=== PATIENT | female | born 1950 | race Caucasian/White ===

== ENCOUNTER 2016-09-18 15:21 | Inpatient (IN) | payer OTHER ==
[~2016-09-18] VITALS: Ht 157.5 cm; Wt 58.5 kg
[2016-09-18 17:08] VITALS: BP 174/81
[2016-09-18] MEDS ORDERED: ESTR0.5T PO (18:03)
[2016-09-18] MEDS ORDERED: VITA400C36 PO (18:03)
[2016-09-18] MEDS ORDERED: HYDR-2867 IV (18:03)
[2016-09-18] MEDS ORDERED: MORP10SO PO (18:03)
[2016-09-18] MEDS ORDERED: MORP15TA34 PO (18:03)
[2016-09-18] MEDS ORDERED: CALC500T PO (18:03)
[2016-09-18] MEDS ORDERED: MORP10DI10 PO (18:03)
[2016-09-18] MEDS ORDERED: POTA10CA PO (18:03)
[2016-09-18] MEDS ORDERED: MAGN400T3 PO (18:03)
[2016-09-18] MEDS ORDERED: ACET325T9 PO (18:03)
[2016-09-18] MEDS ORDERED: CEFT1FRO2 IV (18:03)
[2016-09-18] MEDS ORDERED: DONE10TA7 PO (18:03)
[2016-09-18] MEDS ORDERED: AMLO2.5T PO (18:03)
[2016-09-18] MEDS ORDERED: ONDA-35 PO (18:03)
[2016-09-18] MEDS ORDERED: PROC10VI IV (18:03)
[2016-09-18] MEDS ORDERED: FISH1CAP PO (18:03)
[2016-09-18] MEDS ORDERED: LEVO50TA PO (18:03)
[2016-09-18] MEDS ORDERED: ONDA4DIS4 IV (18:03)
[2016-09-18] MEDS ORDERED: LISI-334 PO (18:03)
[2016-09-18] MEDS ORDERED: MORP15TA PO (18:07)
[2016-09-18] MEDS ORDERED: CALCIUM CARBONATE 500 MG TABLET PO PRN (18:15)
[2016-09-18] MEDS ORDERED: MORPHINE IR 15 MG TABLET PO PRN (18:15)
[2016-09-18] MEDS ORDERED: PROCHLORPERAZINE 10 MG/2 ML VIAL. IV PRN ×2 (18:15→18:30)
[2016-09-18] MEDS ORDERED: CEFTRIAXONE SODIUM 1 GM in IV NORMAL SALINE 50ML 50 ML IV SCH (18:30)
[2016-09-18] MEDS ORDERED: ONDANSETRON PF 4 MG/2 ML VIAL. IV PRN (18:30)
[2016-09-18] MEDS ORDERED: ONDANSETRON ODT 4 MG TAB.RAPDIS PO PRN (18:30)
[2016-09-18 18:50] LABS: BASO % 0 % (0-3); EOS % 1 % (0-3); HEMATOCRIT 44.6 % (36.0-47.0); HEMOGLOBIN 15.2 g/dL (12.0-15.5); LYMPH # 1.8 x10^3/uL (1.0-4.8); LYMPH % 25 % (24-48); MEAN CORPUSCULAR HEMOGLOBIN 28 pg (25-35); MEAN CORPUSCULAR HGB CONC 34 g/dL (31-37); MEAN CORPUSCULAR VOLUME 83 fL (79-100); MONO % 8 % (0-9); NEUT % 66 % (31-73); PLATELET COUNT 202 x10^3/uL (140-400); RED BLOOD COUNT 5.35 x10^6/uL (3.50-5.40); RED CELL DISTRIBUTION WIDTH 14.9 % (11.5-14.5)
[2016-09-18] MEDS: IV NORMAL SALINE 1000ML BAG 1,000 ML IV SCH ×2 (19:00→22:52)
[2016-09-18 19:06] LABS: ALBUMIN 3.3 g/dL (3.4-5.0); ALBUMIN/GLOBULIN RATIO 0.8 (1.0-1.7); C-REACTIVE PROTEIN 12.3 mg/L (0-3.3); CALCIUM 9.2 mg/dL (8.5-10.1); CREATININE 0.8 mg/dL (0.6-1.0); GFR 71.3; POTASSIUM 3.6 mmol/L (3.5-5.1); TOTAL BILIRUBIN 0.6 mg/dL (0.2-1.0); TOTAL PROTEIN 7.4 g/dL (6.4-8.2)
[2016-09-18 19:39] VITALS: BP 165/75
[2016-09-18] MEDS ORDERED: DONEPEZIL HCL 10 MG TABLET. PO SCH ×2 (21:00→22:00)
[2016-09-18] MEDS: DONEPEZIL HCL 10 MG TABLET. PO SCH (22:15)
[2016-09-18] MEDS: DIPHENHYDRAMINE 50 MG/ML VIAL IVP PRN (23:21)
[2016-09-18] MEDS: ACETAMINOPHEN 325 MG TABLET. PO SCH (23:24)
[2016-09-18 23:30] VITALS: BP 158/72
[2016-09-19 03:00] VITALS: BP 160/81
[2016-09-19] MEDS: IV NORMAL SALINE 1000ML BAG 1,000 ML IV SCH ×2 (06:11→23:23)
[2016-09-19] MEDS: LEVOTHYROXINE 50 MCG TABLET PO SCH (06:11)
[2016-09-19] MEDS: ACETAMINOPHEN 325 MG TABLET. PO SCH ×4 (06:11→23:22)
[2016-09-19 07:15] VITALS: BP 158/65
[2016-09-19] MEDS: VITAMIN E 200 UNIT CAPSULE. PO SCH (07:36)
[2016-09-19] MEDS: MAGNESIUM OXIDE 400 MG TABLET PO SCH (07:37)
[2016-09-19] MEDS: AMLODIPINE BESYLATE 2.5 MG TABLET PO SCH (07:37)
[2016-09-19] MEDS: LISINOPRIL 20 MG TABLET PO SCH (07:37)
[2016-09-19] MEDS: POTASSIUM CHLORIDE 10 MEQ TABLET.ER. PO SCH (07:38)
[2016-09-19] MEDS: ESTRADIOL 1 MG TABLET. PO SCH (07:38)
--- NOTE | 2016-09-19 08:41 | PDOC2 ---
GI CONSULT Reason For Consult: N/v/d HPI: HPI: 66 y/o female w/ dementia and debility transferred from [facility] for n/v/d where she had been admitted twice recently for same/dehydration. She apparently did not do well at home where she lives with her . History from printed records and staff as pt is alone in room this morning and a poor historian. She is trying to make a phone call with the tv remote. To me, she denies GI symptoms including n/v, diarrhea, abd pain, reflux, hematochezia, and melena. Her appetite is "so-so," but says she's going to try to eat breakfast. Doesn't believes she's ever had an EGD or colonoscopy. Per RN, no n/v or diarrhea since admitted here. Records indicate dark brown thick emesis w/ some tachycardia on 09/17 (at [facility]). Labs unrevealing here except for elevated CRP 12.3. CT A/P w/ IV contrast on 09/17 showed no acute findings and occasional tiny 1-2mm pulmonary nodules at right lung base. CT head w/o contrast on 09/16 was unrevealing. PMH: PMH: dementia, sinusitis, hypothyroidism, HTN, DDD, hyperglycemia, OA, HLD, cholecystectomy, hysterectomy, back surgery, knee surgery, , urinary incontinence FH: Family History: No pertinent hx Social History: Smoke: No ALCOHOL: none Drugs: None ROS: Difficult to obtain. Denies pain. VItals: Vitals: Vital Signs Date Time Temp Pulse Resp B/P Pulse Ox O2 Delivery O2 Flow Rate FiO2 09/19/16 07:37 54 158/65 09/19/16 07:15 98.1 18 95 Room Air 98.1 Labs: Labs: Laboratory Tests Test 09/18/16 18:30 White Blood Count 7.0x10^3/uL (4.0-11.0) Red Blood Count 5.35x10^6/uL (3.50-5.40) Hemoglobin 15.2g/dL (12.0-15.5) Hematocrit 44.6% (36.0-47.0) Mean Corpuscular Volume 83fL (79-100) Mean Corpuscular Hemoglobin 28pg (25-35) Mean Corpuscular Hemoglobin Concent 34g/dL (31-37) Red Cell Distribution Width 14.9% (11.5-14.5) Platelet Count 202x10^3/uL (140-400) Neutrophils (%) (Auto) 66% (31-73) Lymphocytes (%) (Auto) 25% (24-48) Monocytes (%) (Auto) 8% (0-9) Eosinophils (%) (Auto) 1% (0-3) Basophils (%) (Auto) 0% (0-3) Neutrophils # (Auto) 4.7x10^3uL (1.8-7.7) Lymphocytes # (Auto) 1.8x10^3/uL (1.0-4.8) Monocytes # (Auto) 0.6x10^3/uL (0.0-1.1) Eosinophils # (Auto) 0.0x10^3/uL (0.0-0.7) Basophils # (Auto) 0.0x10^3/uL (0.0-0.2) Erythrocyte Sedimentation Rate 5 (0-25) Sodium Level 141mmol/L (136-145) Potassium Level 3.6mmol/L (3.5-5.1) Chloride Level 103mmol/L (98-107) Carbon Dioxide Level 24mmol/L (21-32) Anion Gap 14 (6-14) Blood Urea Nitrogen 14mg/dL (7-20) Creatinine 0.8mg/dL (0.6-1.0) Estimated GFR (Cockcroft-Gault) 71.3 BUN/Creatinine Ratio 18 (6-20) Glucose Level 82mg/dL (70-99) Calcium Level 9.2mg/dL (8.5-10.1) Total Bilirubin 0.6mg/dL (0.2-1.0) Aspartate Amino Transf (AST/SGOT) 22U/L (15-37) Alanine Aminotransferase (ALT/SGPT) 18U/L (14-59) Alkaline Phosphatase 85U/L (46-116) C-Reactive Protein, Quantitative 12.3mg/L (0-3.3) Total Protein 7.4g/dL (6.4-8.2) Albumin 3.3g/dL (3.4-5.0) Albumin/Globulin Ratio 0.8 (1.0-1.7) Thyroid Stimulating Hormone (TSH) 1.704uIU/mL (0.358-3.74) Allergies: Coded Allergies: codeine (Verified Allergy, Intermediate, 09/18/16) Medications: Current Medications Medications (Trade) Dose Ordered Sig/Dominick Route PRN Reason Start Time Stop Time Status Last Admin Dose Admin Sodium Chloride (Iv Sodium Chloride 0.9% 1000ml Bag) 1,000 ml @ 100 mls/hr Q10H IV 09/18/16 19:00 09/19/16 06:11 Acetaminophen (Tylenol) 650 mg Q6HRS PO 09/19/16 00:00 09/19/16 06:11 Amlodipine Besylate (Norvasc) 2.5 mg DAILY PO 09/19/16 09:00 09/19/16 07:37 Levothyroxine Sodium (Synthroid) 50 mcg DAILY07 PO 09/19/16 07:00 09/19/16 06:11 Lisinopril (Prinivil) 20 mg DAILY PO 09/19/16 09:00 09/19/16 07:37 Magnesium Oxide (Magnesium Oxide) 400 mg DAILY PO 09/19/16 09:00 09/19/16 07:37 Estradiol (Estrace) 0.5 mg DAILY PO 09/19/16 09:00 09/19/16 07:38 Potassium Chloride (Klor-Con) 10 meq DAILYWBKFT PO 09/19/16 08:00 09/19/16 07:38 Vitamin E 400 unit DAILY PO 09/19/16 09:00 09/19/16 07:36 Donepezil HCl (Aricept) 10 mg HS PO 09/18/16 22:15 09/18/16 22:15 Diphenhydramine HCl (Benadryl) 25 mg PRN Q4HRS PRN IVP ITCHING 09/18/16 23:15 09/18/16 23:21 Imaging: Imaging: Reviewed from [facility] as per HPI. PE: GEN: NAD HEENT: Atraumatic, PERRL LUNGS: CTAB HEART: RRR ABD: NABS, S/ND/NT EXTREMITY: No edema SKIN: No rashes, no jaundice NEURO/PSYCH: awake/alert, confused A/P: A/P: Vomiting, diarrhea -admitted twice recently at [facility] for same, transferred to [facility] yesterday ---> asymptomatic here -labs, imaging unrevealing except elevated CRP Dementia -- Difficult w/ dementia. Hopefully will be able to review w/ at some point. Empiric PPI. Can check C Diff if diarrhea recurs. Observe - consider EGD/colonoscopy later if symptoms recur. EUGENE UP Sep 19, 2016 08:41
[2016-09-19] MEDS ORDERED: CEFTRIAXONE NA IV SCH (09:00)
[2016-09-19] MEDS ORDERED: DEXTROSE ISO IV SCH (09:00)
[2016-09-19] MEDS: PANTOPRAZOLE 40 MG TABLET. PO SCH (09:44)
[2016-09-19 11:07] VITALS: BP 149/61
[2016-09-19 12:52] LABS: HEMOGLOBIN 14.1 g/dL (12.0-15.5); RED BLOOD COUNT 4.98 x10^6/uL (3.50-5.40); RED CELL DISTRIBUTION WIDTH 14.3 % (11.5-14.5); WHITE BLOOD COUNT 5.6 x10^3/uL (4.0-11.0)
--- NOTE | 2016-09-19 13:49 | HP ---
ADMIT DATE: 09/18/2016 HISTORY OF PRESENT ILLNESS: This is a 66-year-old female patient who was transferred to us from [facility]. She was admitted twice with recurrent bouts of nausea, vomiting, marked dehydration and severe hypokalemia. She was admitted on 09/10/2016 because of recurrent bouts of nausea, vomiting, diarrhea and altered mental status, sinusitis and aspiration pneumonitis as well as bradycardia. She has been on large amount of narcotics that were discontinued. She was discharged home to continue on the doxycycline for a sinus infection and pneumonia. Her MS Contin was stopped due to nausea and sedation; however, she came back again with the same complaint of nausea, vomiting and found to be dehydrated as well as have marked hypokalemia with potassium down to 0.9 and further she has had extensive investigation including abdomen and pelvis with IV contrast only and it showed that there is no abnormal finding on both lung bases. The liver and spleen appears unremarkable. Clips are seen in the area of the duodenal sweep and at the gastroesophageal junction. No pancreatic abnormality is seen. No significant adrenal anomalies are seen. Small adrenal cysts are noted in acute finding. The abdomen is not seen. No acute finding apparent in the pelvis. Postoperative changes are noted in the lumbar spine. Scoliosis and degenerative changes are additionally noted. The patient basically continued to be extremely anorexic, unable to eat and drink. Given the recurrent nature of her symptoms, a decision was made to transfer her to [facility] to consult the gastroenterology team. The patient herself is extremely demented and does not give any useful information. PAST MEDICAL HISTORY: Significant for hypertension, hyperlipidemia, hypothyroidism, osteoarthritis and degenerative disk disease. She has also severe dementia. PAST SURGICAL HISTORY: Significant for cholecystectomy, hysterectomy, back surgery, x 2, bilateral total knee replacement and incontinence treatment. FAMILY HISTORY: Significant for brain aneurysm and colon cancer in her brother and lung cancer in her sister. SOCIAL HISTORY: She lives with her . She does not smoke, drink alcohol or use recreational drugs. REVIEW OF SYSTEMS: Unobtainable as the patient is extremely demented. PHYSICAL EXAMINATION: GENERAL: On examining her, she looked well and was clearly in no apparent respiratory distress, pale, no jaundice, cyanosis or thyromegaly. No jugular venous distention. No limb edema. VITAL SIGNS: Her heart rate was 59, blood pressure was 166/75, temperature was 99, respiratory rate was 18 and oxygen saturation was 98%. HEAD, EYES, EARS NOSE AND THROAT: Normocephalic, atraumatic. NECK: Supple. HEART: Showed normal first and second heart sounds with no gallop, rub or murmur. CHEST: Clear to auscultation. No crepitation or rhonchi. ABDOMEN: Distended, soft, nontender. No guarding or rigidity. No organomegaly. All hernial orifices intact. Bowel sounds normal. NEUROLOGIC: She is demented without any obvious lateralizing sign. All her cranial nerves are intact. EXTREMITIES: She moves extremities without difficulty. She manages to ambulate with assistance. LABORATORY DATA: Her lab work this morning showed a white cell count of 7000, hemoglobin 15, hematocrit 44, MCV 83, and platelet count of 202,000 with normal manual differential. Her chemistry showed a serum sodium of 141, potassium 3.6, chloride 103, bicarbonate 24, anion gap of 14, BUN 14, creatinine 0.8, estimated GFR was 71 mL per minute. Her glucose was 82. Calcium was 9.2. Total bilirubin, AST, ALT, alkaline phosphatase were normal. Her total protein was 7.4, albumin 3.3. TSH was 1.704 and C-reactive protein was 12.3 mg/dL. PLAN: My plan is to continue with her current medication. Continue with IV fluid. We will consult the gastroenterology team and decide on further management accordingly. ROSA SCHULTZ MD DR: GRECIA/hay JOB#: [id number] / [id number]
[2016-09-19] MEDS: CEFTRIAXONE SODIUM 1 GM in IV NORMAL SALINE 50ML 50 ML IV SCH (14:00)
[2016-09-19 15:15] VITALS: BP 156/69
[2016-09-19 19:00] VITALS: BP 174/79
[2016-09-19] MEDS: DONEPEZIL HCL 10 MG TABLET. PO SCH (21:00)
[2016-09-19 23:00] VITALS: BP 163/128
[2016-09-19] MEDS: hydrALAZINE 20 MG/ML VIAL. IVP PRN (23:23)
[2016-09-20 03:00] VITALS: BP 173/95
[2016-09-20] MEDS: hydrALAZINE 20 MG/ML VIAL. IVP PRN ×4 (03:55→22:35)
[2016-09-20] MEDS: LEVOTHYROXINE 50 MCG TABLET PO SCH (05:52)
[2016-09-20] MEDS: ACETAMINOPHEN 325 MG TABLET. PO SCH ×4 (05:52→20:35)
[2016-09-20 07:25] LABS: ALBUMIN 3.1 g/dL (3.4-5.0); ALBUMIN/GLOBULIN RATIO 0.9 (1.0-1.7); POTASSIUM 3.1 mmol/L (3.5-5.1); TOTAL BILIRUBIN 0.5 mg/dL (0.2-1.0); TOTAL PROTEIN 6.6 g/dL (6.4-8.2)
[2016-09-20 07:37] VITALS: BP 176/89
[2016-09-20 07:38] LABS: CALCIUM 8.6 mg/dL (8.5-10.1); CREATININE 0.6 mg/dL (0.6-1.0); GFR 99.4
[2016-09-20] MEDS ORDERED: BARIUM SULFATE 340 GM SUSPENSION. PO ONE (07:45)
[2016-09-20] MEDS ORDERED: BARIUM SULFATE 60% 355 ML SUSP PO ONE (07:45)
[2016-09-20] MEDS ORDERED: SIMETHICONE/SOD BICARB/CITRIC ACID PACKET. PO ONE (07:45)
[2016-09-20] MEDS ORDERED: IV DEXTROSE 5 %-0.45 % NACL 1,000 ML IV SCH (10:00)
[2016-09-20 10:17] VITALS: BP 152/78
[2016-09-20] MEDS: IV NORMAL SALINE 1000ML BAG 1,000 ML IV SCH (11:00)
[2016-09-20] MEDS: PANTOPRAZOLE 40 MG TABLET. PO SCH (13:36)
[2016-09-20] MEDS: VITAMIN E 200 UNIT CAPSULE. PO SCH (13:36)
[2016-09-20] MEDS: POTASSIUM CHLORIDE 10 MEQ TABLET.ER. PO SCH (13:37)
[2016-09-20] MEDS: ESTRADIOL 1 MG TABLET. PO SCH (13:37)
[2016-09-20] MEDS: MAGNESIUM OXIDE 400 MG TABLET PO SCH (13:37)
[2016-09-20] MEDS: AMLODIPINE BESYLATE 2.5 MG TABLET PO SCH (13:45)
[2016-09-20] MEDS: LISINOPRIL 20 MG TABLET PO SCH (13:45)
--- NOTE | 2016-09-20 13:52 | PDOC ---
Objective: Objective: No family present. Vital Signs: Vital Signs Date Time Temp Pulse Resp B/P Pulse Ox O2 Delivery O2 Flow Rate FiO2 09/20/16 13:45 63 188/98 09/20/16 10:17 97.5 18 96 Room Air 97.5 Labs: Laboratory Tests Test 09/20/16 09:40 Glucose (Fingerstick) 69mg/dL (70-99) Imaging: UGI Series PENDING PE: GEN: NAD LUNGS: CTAB HEART: RRR ABD: epigastric tenderness NEURO/PSYCH: confused, drowsy A/P: Vomiting - no recurrence here Dementia -- Official UGI series report pending. Called radiology, spoke w/ tech - no filling into duodenum ?possible stricture Reviewed w/ Dr. Reed - no massage into stomach, ?esophageal narrowing w/ clips D/w RN - NG tube, EGD tomorrow if family consents. EUGENE UP Sep 20, 2016 13:52 TELMA REED MD Sep 20, 2016 14:33
[2016-09-20] MEDS: POTASSIUM CL 40MEQ D5-0.45NACL 1,000 ML IV SCH (13:54)
--- NOTE | 2016-09-20 14:01 | RAD ---
Indication recurrent vomiting. A preliminary film of the abdomen was obtained. The abdominal gas pattern appears normal. Postoperative changes are noted in the lower lumbar spine. There is scoliosis and substantial degenerative change involving the lumbar spine. The study is extremely limited. The patient was not a candidate for a double contrast exam and the patient did not cooperate for the exam. She drank only a very limited amount of the contrast material. Swallowing was normal. No definite esophageal pathology was seen. There was a small hiatus hernia. There is some suggested thickening of rugal folds in the stomach. The stomach was incompletely distended and poorly evaluated. Gastric pathology is not excluded. The study was carried out for approximately 2 hours and 20 minutes. Over this period of time there was no emptying from the stomach. IMPRESSION: Essentially nondiagnostic study. No significant esophageal pathology is seen. There is delayed emptying from the stomach. Gastric and/or duodenal pathology is not excluded on the basis of this study.
[2016-09-20] MEDS: CEFTRIAXONE SODIUM 1 GM in IV NORMAL SALINE 50ML 50 ML IV SCH (14:02)
[2016-09-20 14:05] VITALS: BP 188/98
[2016-09-20] MEDS: DIPHENHYDRAMINE 50 MG/ML VIAL IVP PRN (15:18)
[2016-09-20] MEDS ORDERED: LORAZEPAM 2 MG/ML VIAL IV ONE (17:00)
[2016-09-20] MEDS: CLONIDINE TTS-2 PATCH TD SCH (17:12)
--- NOTE | 2016-09-20 18:17 | RAD ---
PROCEDURE Abdomen, single view. HISTORY Nasogastric tube placement. FINDINGS Frontal views of the abdomen are obtained. There is a nasogastric tube within the gastric cardia with the side-port in the distal esophagus. There is contrast within the stomach. There is no effusion. The heart is normal in size. There is a left PICC with the tip overlying the left axilla. IMPRESSION 1. Nasogastric tube within the proximal stomach with the side port in the distal esophagus. There is contrast within the stomach. 2. Left PICC with the tip overlying the left axilla. Electronically signed by: Radha Shankar (Sep 20, 2016 18:15:54)
--- NOTE | 2016-09-20 19:25 | RAD ---
PROCEDURE Abdomen radiograph. HISTORY NG tube placement. COMPARISON Earlier same day. FINDINGS AP portable upright abdomen radiograph, 2 images. Abdomen is underexposed. Consequently, cannot delineate location of tip of esophagogastric tube. Esophagogastric tube is at least to the distal esophagus. IMPRESSION Limited examination. Recommend repeat examination with altered technique. Electronically signed by: Alen Aguilera MD (Sep 20, 2016 19:23:30)
[2016-09-20] MEDS: DONEPEZIL HCL 10 MG TABLET. PO SCH (20:35)
--- NOTE | 2016-09-20 20:42 | RAD ---
PROCEDURE Abdomen radiograph. HISTORY Repositioning of NG tube. COMPARISON Earlier same day. FINDINGS Upright AP view of the abdomen. Contrast material is seen in the stomach as well as the bowel. L4-5 laminectomy and spinal fusion changes are seen. S-shaped scoliosis of the lower thoracic and lumbar spine is seen. Esophagogastric tube is present with tip projecting at the midbody of the stomach. IMPRESSION Esophagogastric tube tip projects at the midbody of the stomach. Electronically signed by: Alen Aguilera MD (Sep 20, 2016 20:41:29)
[2016-09-20 22:54] VITALS: BP 193/97
[2016-09-20] MEDS: LORAZEPAM 2 MG/ML VIAL IV PRN (23:09)
[2016-09-21 03:00] VITALS: BP 169/113
[2016-09-21] MEDS: POTASSIUM CL 40MEQ D5-0.45NACL 1,000 ML IV SCH ×2 (03:11→18:39)
[2016-09-21] MEDS: hydrALAZINE 20 MG/ML VIAL. IVP PRN ×2 (04:14→08:35)
[2016-09-21] MEDS: LEVOTHYROXINE 50 MCG TABLET PO SCH (05:22)
[2016-09-21] MEDS: ACETAMINOPHEN 325 MG TABLET. PO SCH ×4 (05:22→18:00)
[2016-09-21 05:39] LABS: BASO % 0 % (0-3); EOS % 1 % (0-3); HEMATOCRIT 46.1 % (36.0-47.0); LYMPH # 1.2 x10^3/uL (1.0-4.8); LYMPH % 14 % (24-48); MEAN CORPUSCULAR HEMOGLOBIN 28 pg (25-35); MEAN CORPUSCULAR HGB CONC 35 g/dL (31-37); MEAN CORPUSCULAR VOLUME 82 fL (79-100); MONO % 7 % (0-9); NEUT % 79 % (31-73); PLATELET COUNT 267 x10^3/uL (140-400); RED BLOOD COUNT 5.65 x10^6/uL (3.50-5.40); RED CELL DISTRIBUTION WIDTH 14.6 % (11.5-14.5)
[2016-09-21] MEDS ORDERED: ONDANSETRON PF 4 MG/2 ML VIAL. IV PRN ×2 (05:49→11:00)
[2016-09-21 06:06] LABS: ALBUMIN/GLOBULIN RATIO 0.8 (1.0-1.7); CREATININE 0.7 mg/dL (0.6-1.0); GFR 83.2; TOTAL BILIRUBIN 0.4 mg/dL (0.2-1.0); TOTAL PROTEIN 6.9 g/dL (6.4-8.2)
[2016-09-21 06:11] LABS: POTASSIUM 2.9 mmol/L (3.5-5.1)
[2016-09-21] MEDS: POTASSIUM CHLORIDE 10MEQ 100 ML IV SCH ×4 (06:36→10:44)
[2016-09-21] MEDS: PANTOPRAZOLE 40 MG TABLET. PO SCH (06:40)
--- NOTE | 2016-09-21 06:50 | PN ---
DATE: 09/20/2016 SUBJECTIVE: The patient is sitting in the edge of the bed comfortably, in no apparent distress. She apparently refused to have the endoscopy this morning. Apparently, she is scheduled for upper GI series. She did have diarrhea and her potassium is low this morning at 3.1. OBJECTIVE: GENERAL: When I examined her, she looked well and was clearly in no apparent respiratory distress, pale, but no jaundice, cyanosis, or thyromegaly. No jugular venous distention. No limb edema. VITAL SIGNS: Her heart rate was 69, blood pressure was 152/78, temperature was 97.5, respiratory rate was 18 and oxygen saturation was 96%. HEAD, EYES, EARS, NOSE AND THROAT: Showed normocephalic, atraumatic. NECK: Supple. HEART: Showed normal first and second heart sounds with no gallop, rub or murmur. CHEST: Clear to auscultation. No crepitation or rhonchi. ABDOMEN: Distended, soft, nontender. No guarding or rigidity. No organomegaly. All hernial orifices intact. Bowel sounds normal. NEUROLOGIC: She was demented, but without any obvious lateralizing sign. She is able to move her lower extremities without difficulty, able to ambulate. Her intake over the last 24 hours was 1120, no output was recorded. LABORATORY DATA: This morning showed a serum sodium 138, potassium 3.1, chloride 102, bicarbonate 19, anion gap of 17, BUN 10, creatinine 0.6. Estimated GFR was 99 mL per minute. Her glucose was 67. Calcium was 8.6. Total bilirubin, AST, ALT, alkaline phosphatase were normal. Total protein was 6.6, albumin 3.1. TSH was 1.704. Her white cell count was 5600, hemoglobin 14, hematocrit 42, MCV 84 and platelet count of 184,000. ASSESSMENT: Recurrent bouts of nausea, vomiting as well as diarrhea, and hypokalemia. PLAN: The plan is to change her IV fluid to D5 half normal with 40 mEq of potassium chloride. She is apparently scheduled for upper GI series. We will repeat all her lab works tomorrow. Await the results of the upper GI series as well as upper GI endoscopy. ROSA SCHULTZ MD DR: GRECIA/hay JOB#: [id number] / [id number]
[2016-09-21 07:54] VITALS: BP 177/117
[2016-09-21] MEDS: POTASSIUM CHLORIDE 10 MEQ TABLET.ER. PO SCH (08:00)
[2016-09-21] MEDS: VITAMIN E 200 UNIT CAPSULE. PO SCH (09:00)
[2016-09-21] MEDS: AMLODIPINE BESYLATE 2.5 MG TABLET PO SCH (09:00)
[2016-09-21] MEDS: MAGNESIUM OXIDE 400 MG TABLET PO SCH (09:00)
[2016-09-21] MEDS: LISINOPRIL 20 MG TABLET PO SCH (09:00)
[2016-09-21] MEDS: ESTRADIOL 1 MG TABLET. PO SCH (09:00)
[2016-09-21] MEDS ORDERED: IV RINGERS,LACTATED 1000ML 1,000 ML IV SCH (10:48)
[2016-09-21 11:00] VITALS: BP 175/104
[2016-09-21] MEDS ORDERED: LIDOCAINE 1% 1 ML SYRINGE. ID PRN (11:00)
[2016-09-21] MEDS ORDERED: PROCHLORPERAZINE 10 MG/2 ML VIAL. IV PRN ×2 (11:00→13:39)
[2016-09-21] MEDS ORDERED: FENTANYL PF 100 MCG/2 ML VIAL. IV PRN ×2 (11:00)
[2016-09-21] MEDS ORDERED: LABETALOL 20 MG/4 ML DISP.SYRIN. IVP PRN (11:45)
[2016-09-21] MEDS ORDERED: LIDOCAINE 2% PF Vial for OR 5 ML VIAL. ONE (12:03)
[2016-09-21] MEDS ORDERED: PROPOFOL 0 ML IV ONE (12:03)
--- NOTE | 2016-09-21 12:19 | PDOC4 ---
Operative Note Operative Note EGD Meds propofol 100 mg iv Pre-op dx n/v/abnl ugi series post-op retained barium non-erosive gastritis without obstruction Imp- n/v- without outlet obstruction, differential of extrinsic compression and/ or intrinsic motility dysfunction- gastroparesis Plan CT scan abd/pelvis if unhelpful, then GES to follow. TELMA RODRIGUEZ MD Sep 21, 2016 12:19
[2016-09-21 15:15] VITALS: BP 168/102
[2016-09-21] MEDS ORDERED: IOHEXOL 300 MG/ML 75 ML VIAL IV ONE (17:15)
[2016-09-21] MEDS ORDERED: CONTRAST GIVEN MC PRN (17:15)
[2016-09-21] MEDS: CEFTRIAXONE SODIUM 1 GM in IV NORMAL SALINE 50ML 50 ML IV SCH (17:32)
[2016-09-21 19:00] VITALS: BP 169/105
[2016-09-21] MEDS: DONEPEZIL HCL 10 MG TABLET. PO SCH (21:00)
[2016-09-21 23:00] VITALS: BP 165/101
--- NOTE | 2016-09-22 00:37 | PN ---
DATE: 09/21/2016 SUBJECTIVE: The patient is resting slightly propped up in bed, in no apparent distress. She is very lethargic. She received 2 doses of Ativan yesterday. She has an NG tube put in as her upper GI series showed that there is no significant pathology seen. There is delayed emptying from the stomach, gastric and/or duodenal pathology is not excluded on the basis of this study. She continued unfortunately to have diarrhea and stool was sent for C. diff toxins. Her potassium was low and unfortunately she is losing it through the NG tube and also from her through her diarrhea and we did start her on potassium replacement protocol. She is already on D5 half normal with 40 mEq of potassium chloride. PHYSICAL EXAMINATION: GENERAL: When I examined her this morning, she looked well and was clearly in no apparent respiratory distress, pale, but no jaundice, cyanosis or thyromegaly. No jugular venous distention. No limb edema. VITAL SIGNS: Her heart rate was 84, blood pressure was 177/117, temperature was 97.6, respiratory rate was 18 and oxygen saturation was 95% on room air. HEAD, EYES, EARS, NOSE AND THROAT: Showed she is normocephalic, atraumatic. EXTREMITIES: She has a nasogastric tube in the right nostril. NECK: Supple. HEART: Showed normal first and second heart sounds with no gallop, rub or murmur. CHEST: Clear to auscultation, no rales, wheezes or rhonchi. ABDOMEN: Distended, mostly in the suprapubic area. No guarding or rigidity. No organomegaly. Hernial orifices intact. Bowel sounds normal. NEUROLOGIC: She is demented without any obvious lateralizing sign. Her intake over the last 24 hours was 420, output was 600. LABORATORY DATA: Her lab work this morning showed that her serum sodium was 138, potassium 2.9, chloride 102, bicarbonate 24, anion gap of 12, BUN 7, creatinine 0.7, estimated GFR was 83 mL per minute. Her glucose was 122, calcium was 9. Total bilirubin, AST, ALT, alkaline phosphatase were normal. Total protein was 6.9, albumin 3. White cell count was 9000, hemoglobin 16, hematocrit 46, MCV was 82 and platelet count 267,000. ASSESSMENT AND PLAN: Recurrent bouts of nausea, vomiting as well as diarrhea. Upper GI series showed possible delayed gastric emptying, with possible gastric or duodenal pathology for which she is scheduled for upper GI endoscopy this morning. Hypokalemia for which she is on potassium supplement. Stool was sent for C. diff toxins. We will continue with IV fluid. She is already on proton pump inhibitor and she is on SCD for DVT prophylaxis. ROSA SCHULTZ MD DR: GRECIA/hay JOB#: [id number] / [id number]
[2016-09-22] MEDS: ACETAMINOPHEN 325 MG TABLET. PO SCH ×6 (03:05→22:55)
[2016-09-22 03:09] VITALS: BP 128/87
[2016-09-22] MEDS ORDERED: CONTRAST GIVEN MC PRN (06:45)
[2016-09-22] MEDS ORDERED: IOHEXOL 300 MG/ML 75 ML VIAL IV ONE (07:00)
[2016-09-22 07:57] LABS: ALBUMIN 2.8 g/dL (3.4-5.0); ALBUMIN/GLOBULIN RATIO 0.8 (1.0-1.7); CREATININE 0.7 mg/dL (0.6-1.0); GFR 83.2; POTASSIUM 3.5 mmol/L (3.5-5.1); TOTAL BILIRUBIN 0.4 mg/dL (0.2-1.0); TOTAL PROTEIN 6.5 g/dL (6.4-8.2)
[2016-09-22 07:59] VITALS: BP 150/96
[2016-09-22] MEDS: POTASSIUM CHLORIDE 10 MEQ TABLET.ER. PO SCH (08:00)
[2016-09-22 08:17] LABS: HEMOGLOBIN 14.1 g/dL (12.0-15.5); RED CELL DISTRIBUTION WIDTH 14.4 % (11.5-14.5); WHITE BLOOD COUNT 6.2 x10^3/uL (4.0-11.0)
[2016-09-22] MEDS: MAGNESIUM OXIDE 400 MG TABLET PO SCH (09:00)
[2016-09-22] MEDS: LISINOPRIL 20 MG TABLET PO SCH (09:35)
[2016-09-22] MEDS: AMLODIPINE BESYLATE 2.5 MG TABLET. PO SCH (09:36)
[2016-09-22] MEDS: VITAMIN E 200 UNIT CAPSULE. PO SCH (09:39)
[2016-09-22] MEDS: ESTRADIOL 1 MG TABLET. PO SCH (09:39)
[2016-09-22] MEDS: PANTOPRAZOLE 40 MG TABLET.DR. PO SCH (09:40)
[2016-09-22] MEDS: POTASSIUM CL 40MEQ D5-0.45NACL 1,000 ML IV SCH (09:45)
[2016-09-22] MEDS: LEVOTHYROXINE 50 MCG TABLET PO SCH (09:55)
--- NOTE | 2016-09-22 10:00 | RAD ---
Indication nausea and vomiting. Axial images through the abdomen and pelvis were obtained. The examination is severely limited, particularly in the abdomen, secondary to residual contrast in the stomach and small bowel loops associated with the upper GI examination 2 days previously. There is residual contrast which is very dense and causes substantial streak artifact and obscuration of the abdominal structures. The lung bases are clear. The liver is grossly normal as is the spleen. The pancreas is largely obscured. A definite acute finding or mass in the abdomen is not seen. The kidneys appear grossly normal. In the pelvis no definite abnormality is seen. Postoperative changes are noted in the lumbar spine. Fowler catheter is noted in the urinary bladder IMPRESSION: Severely limited study. No acute or definite abnormality seen.
[2016-09-22 10:35] VITALS: BP 146/87
--- NOTE | 2016-09-22 11:11 | PDOC ---
Subjective: Subjective: No history from pt. Objective: Objective: Per RN - not eating. Vital Signs: Vital Signs Date Time Temp Pulse Resp B/P Pulse Ox O2 Delivery O2 Flow Rate FiO2 09/22/16 10:35 98.4 62 18 146/87 97 Room Air 98.4 09/21/16 20:00 2.0 Labs: Laboratory Tests Test 09/21/16 17:25 09/22/16 07:00 Potassium Level 3.4mmol/L 3.5mmol/L White Blood Count 6.2x10^3/uL Red Blood Count 5.00x10^6/uL Hemoglobin 14.1g/dL Hematocrit 42.0% Mean Corpuscular Volume 84fL Mean Corpuscular Hemoglobin 28pg Mean Corpuscular Hemoglobin Concent 33g/dL Red Cell Distribution Width 14.4% Platelet Count 244x10^3/uL Sodium Level 140mmol/L Chloride Level 104mmol/L Carbon Dioxide Level 26mmol/L Anion Gap 10 Blood Urea Nitrogen 6mg/dL Creatinine 0.7mg/dL Estimated GFR (Cockcroft-Gault) 83.2 BUN/Creatinine Ratio 9 Glucose Level 115mg/dL Calcium Level 9.0mg/dL Total Bilirubin 0.4mg/dL Aspartate Amino Transf (AST/SGOT) 22U/L Alanine Aminotransferase (ALT/SGPT) 18U/L Alkaline Phosphatase 73U/L Total Protein 6.5g/dL Albumin 2.8g/dL Albumin/Globulin Ratio 0.8 Imaging: UGI IMPRESSION: Essentially nondiagnostic study. No significant esophageal pathology is seen. There is delayed emptying from the stomach. Gastric and/or duodenal pathology is not excluded on the basis of this study. EGD retained barium, non-erosive gastritis without obstruction Imp- n/v- without outlet obstruction, differential of extrinsic compression and/ or intrinsic motility dysfunction- gastroparesis CT A/P w/ IV contrast The examination is severely limited, particularly in the abdomen, secondary to residual contrast in the stomach and small bowel loops associated with the upper GI examination 2 days previously. There is residual contrast which is very dense and causes substantial streak artifact and obscuration of the abdominal structures. The lung bases are clear. The liver is grossly normal as is the spleen. The pancreas is largely obscured. A definite acute finding or mass in the abdomen is not seen. The kidneys appear grossly normal. In the pelvis no definite abnormality is seen. Postoperative changes are noted in the lumbar spine. Fowler catheter is noted in the urinary bladder IMPRESSION: Severely limited study. No acute or definite abnormality seen. PE: GEN: NAD LUNGS: clear anteriorly HEART: S1S2 ABD: soft, non-distended NEURO/PSYCH: confused A/P: N/v, diarrhea, anorexia, dementia -imaging as above, most recently CT w/ residual contrast -- Will order GET for Sunday considering retained contrast. EUGENE UP Sep 22, 2016 11:11
--- NOTE | 2016-09-22 12:02 | PN ---
DATE: 09/22/2016 SUBJECTIVE: The patient is sitting comfortably in a recliner in no apparent distress. She continued to have diarrhea, although stool for C. diff were negative. She has had upper GI endoscopy and apparently she has nonerosive gastritis without obstruction. She had a CT scan of the abdomen and pelvis with IV contrast, which showed that there is severely limited study, no acute or definite abnormality seen and obviously the plan is for her to have gastric emptying study as the only explanation for her intractable nausea and vomiting. Her potassium is well replenished today at 3.5. PHYSICAL EXAMINATION: GENERAL: When I examined her, she looked well and was clearly in no apparent respiratory distress, pale. No jaundice, cyanosis, no thyromegaly. No jugular venous distention. No limb edema. VITAL SIGNS: Her heart rate was 62, blood pressure was 146/82, temperature was 98.4, respiratory rate was 18 and oxygen saturation was 97%. HEENT: Shows normocephalic, atraumatic. NECK: Supple. HEART: Showed normal first and second heart sounds. No gallop, rub or murmur. CHEST: Clear to auscultation. No crepitation or rhonchi. ABDOMEN: Distended, soft, nontender. No guarding or rigidity. No organomegaly. Hernial orifices intact. Bowel sounds normal. NEUROLOGIC: She is demented without any obvious localizing sign. She actually managed to ambulate with a walker without any assistance. Her intake and output are incompletely recorded. LABORATORY DATA: Her lab work this morning showed a serum sodium 140, potassium 3.5, chloride 104, bicarbonate 26, anion gap of 10, BUN 6, creatinine 0.7, estimated GFR was 83 mL per minute, glucose 115, calcium was 9. Total bilirubin, AST, ALT, alkaline phosphatase were normal. Total protein was 6.5, albumin 2.8. Her white cell count was 6200, hemoglobin 14, hematocrit 42, MCV 84 and platelet count 244,000. IMPRESSION: Intractable nausea and vomiting as well as diarrhea and hypokalemia. Her upper GI endoscopy was unremarkable with no evidence of obstruction. Her stool for C. diff was negative. The plan is to continue with IV fluid. She probably needs a gastric emptying study. I would put the order and I do not know whether this can be done today or not. I will repeat her lab works tomorrow again. ROSA SCHULTZ MD DR: Sarabjit JOB#: [id number] / [id number]
--- NOTE | 2016-09-22 16:09 | RAD ---
Radionuclide gastric emptying study, 09/22/2016: History: Intractable nausea and vomiting The study was performed utilizing a solid test meal radiolabeled with 2 mCi of technetium 99m sulfur colloid. The patient reportedly ingested only a portion of the test meal. Imaging obtained out to one hour showed little if any gastric emptying. The time/activity curve is flat. An accurate T1/2 cannot be calculated in this setting. IMPRESSION: Markedly delayed gastric emptying.
[2016-09-22] MEDS: CEFTRIAXONE SODIUM 1 GM in IV NORMAL SALINE 50ML 50 ML IV SCH (18:07)
[2016-09-22] MEDS: LORAZEPAM 2 MG/ML VIAL IV PRN ×2 (19:09→23:31)
[2016-09-22 19:55] VITALS: BP 147/93
[2016-09-22] MEDS: METOCLOPRAMIDE HCL 10 MG/10 ML SOLUTION. PO SCH (22:55)
[2016-09-22] MEDS: DONEPEZIL HCL 10 MG TABLET. PO SCH (22:55)
[2016-09-23] VITALS (7 sets, daily range): BP systolic 123–144; BP diastolic 76–96
[2016-09-23] MEDS: POTASSIUM CL 40MEQ D5-0.45NACL 1,000 ML IV SCH ×4 (00:15→13:11)
[2016-09-23] MEDS: ACETAMINOPHEN 325 MG TABLET. PO SCH ×3 (06:08→17:28)
[2016-09-23 06:45] LABS: CALCIUM 8.9 mg/dL (8.5-10.1); CREATININE 0.7 mg/dL (0.6-1.0); GFR 83.2; POTASSIUM 3.9 mmol/L (3.5-5.1)
[2016-09-23] MEDS: LEVOTHYROXINE 50 MCG TABLET PO SCH (09:20)
[2016-09-23] MEDS: VITAMIN E 200 UNIT CAPSULE. PO SCH (09:21)
[2016-09-23] MEDS: PANTOPRAZOLE 40 MG TABLET.DR. PO SCH (09:21)
[2016-09-23] MEDS: METOCLOPRAMIDE HCL 10 MG/10 ML SOLUTION. PO SCH ×2 (09:21→11:43)
[2016-09-23] MEDS: ESTRADIOL 1 MG TABLET. PO SCH (09:21)
[2016-09-23] MEDS: MAGNESIUM OXIDE 400 MG TABLET PO SCH (09:21)
[2016-09-23] MEDS: AMLODIPINE BESYLATE 2.5 MG TABLET. PO SCH (09:34)
[2016-09-23] MEDS: POTASSIUM CHLORIDE 10 MEQ TABLET.ER. PO SCH (09:35)
[2016-09-23] MEDS: LISINOPRIL 20 MG TABLET PO SCH (09:35)
[2016-09-23] MEDS ORDERED: DIPHENHYDRAMINE 50 MG/ML VIAL. IVP PRN (13:30)
[2016-09-23] MEDS ORDERED: ONDANSETRON PF 4 MG/2 ML VIAL. IV PRN (13:30)
[2016-09-23] MEDS: CEFTRIAXONE SODIUM 1 GM in IV NORMAL SALINE 50ML 50 ML IV SCH (14:38)
[2016-09-23] MEDS: METOCLOPRAMIDE HCL 10 MG/2 ML VIAL. IV SCH (17:28)
[2016-09-23] MEDS: DONEPEZIL HCL 10 MG TABLET. PO SCH (21:00)
--- NOTE | 2016-09-23 22:48 | PN ---
DATE: SUBJECTIVE: The patient is sitting slightly propped up in her recliner in no apparent respiratory distress. She is awake, alert, very demented, and does not give any useful information. She apparently had had a gastric emptying study, which revealed marked delayed gastric emptying and apparently, she was started on Reglan 5 mg before meals. She continued to be on a clear liquid diet. PHYSICAL EXAMINATION: GENERAL: When I examined her, she looked well and was clearly in no apparent respiratory distress, pale, but no jaundice, cyanosis, or thyromegaly. No jugular venous distention. No limb edema. VITAL SIGNS: Her heart rate was 65, blood pressure was 130/82, temperature was 98.2, respiratory rate was 18, and oxygen saturation was 97%. HEAD, EYES, EARS, NOSE AND THROAT: Showed normocephalic, atraumatic. NECK: Supple. HEART: Showed normal first and second heart sounds with no gallop, rub, or murmur. CHEST: Clear to auscultation. No crepitation or rhonchi. ABDOMEN: Distended, soft, and nontender. NEUROLOGIC: She is demented, but without any obvious lateralizing sign. Her intake is 900, output 1450. LABORATORY DATA: Her lab work this morning showed a white cell count of 6,200, hemoglobin 14, hematocrit 42, MCV 84, and platelet count of 244,000. Her chemistry showed a serum sodium 140, potassium 3.9, chloride 107, bicarbonate 23, anion gap of 10, BUN 5, creatinine 0.7, estimated GFR was 83 mL per minute, her glucose was 104, and calcium was 8.9. ASSESSMENT: The recurrent bouts of nausea and vomiting, as well as diarrhea has resolved. Her stool for Clostridium difficile toxin is negative. The patient has severe markedly delayed gastric emptying, for which she was started on Reglan 5 mg before meals. She continued to be on a clear liquid diet. We will obviously advance as tolerated. PLAN: Continue with IV fluid. Continue to monitor her electrolytes as her potassium is much improved now from 2.9 to 3.9. ROSA SCHULTZ MD DR: GRECIA/hay JOB#: [id number] / [id number]
[2016-09-24] MEDS: ACETAMINOPHEN 325 MG TABLET. PO SCH ×4 (00:09→17:03)
[2016-09-24] MEDS: METOCLOPRAMIDE HCL 10 MG/2 ML VIAL. IV SCH ×4 (00:13→17:03)
[2016-09-24 03:04] VITALS: BP 124/69
[2016-09-24] MEDS: POTASSIUM CL 40MEQ D5-0.45NACL 1,000 ML IV SCH ×2 (03:35→17:29)
[2016-09-24] MEDS: PANTOPRAZOLE 40 MG TABLET.DR. PO SCH (06:22)
[2016-09-24] MEDS: LEVOTHYROXINE 50 MCG TABLET PO SCH (06:22)
[2016-09-24 07:00] VITALS: BP 132/82
[2016-09-24] MEDS: POTASSIUM CHLORIDE 10 MEQ TABLET.ER. PO SCH (08:36)
[2016-09-24] MEDS: MAGNESIUM OXIDE 400 MG TABLET PO SCH (08:36)
[2016-09-24] MEDS: ESTRADIOL 1 MG TABLET. PO SCH (08:36)
[2016-09-24] MEDS: AMLODIPINE BESYLATE 2.5 MG TABLET. PO SCH (08:37)
[2016-09-24] MEDS: LISINOPRIL 20 MG TABLET PO SCH (08:38)
[2016-09-24] MEDS: VITAMIN E 200 UNIT CAPSULE. PO SCH (08:57)
[2016-09-24 11:00] VITALS: BP 131/68
[2016-09-24] MEDS ORDERED: MAALOX:LIDO:APAP 6:2:1 ORAL SUSPENSION 180 ML BOTTLE. PO PRN (12:30)
[2016-09-24 13:10] LABS: CALCIUM 9.3 mg/dL (8.5-10.1); CREATININE 0.9 mg/dL (0.6-1.0); GFR 62.3; POTASSIUM 4.2 mmol/L (3.5-5.1)
[2016-09-24] MEDS: CEFTRIAXONE SODIUM 1 GM in IV NORMAL SALINE 50ML 50 ML IV SCH (14:31)
[2016-09-24 14:40] VITALS: BP 128/73
[2016-09-24 19:35] VITALS: BP 119/76
[2016-09-24] MEDS: DONEPEZIL HCL 10 MG TABLET. PO SCH (20:41)
[2016-09-24] MEDS ORDERED: LORAZEPAM 2 MG/ML VIAL. IV PRN (22:29)
[2016-09-24] MEDS ORDERED: ONDANSETRON ODT 4 MG TAB.RAPDIS. PO PRN (22:29)
[2016-09-24 23:30] VITALS: BP 115/77
[2016-09-25] MEDS: ACETAMINOPHEN 325 MG TABLET. PO SCH ×5 (00:04→23:52)
[2016-09-25] MEDS: METOCLOPRAMIDE HCL 10 MG/2 ML VIAL. IV SCH ×5 (00:07→23:50)
[2016-09-25 03:15] VITALS: BP 122/69
[2016-09-25 06:01] LABS: HEMATOCRIT 42.4 % (36.0-47.0); RED BLOOD COUNT 5.02 x10^6/uL (3.50-5.40); RED CELL DISTRIBUTION WIDTH 14.4 % (11.5-14.5); WHITE BLOOD COUNT 3.8 x10^3/uL (4.0-11.0)
[2016-09-25] MEDS: LEVOTHYROXINE 50 MCG TABLET PO SCH (06:10)
[2016-09-25] MEDS: PANTOPRAZOLE 40 MG TABLET.DR. PO SCH (06:10)
[2016-09-25 06:22] LABS: ALBUMIN 2.8 g/dL (3.4-5.0); ALBUMIN/GLOBULIN RATIO 0.8 (1.0-1.7); CALCIUM 9.1 mg/dL (8.5-10.1); CREATININE 0.9 mg/dL (0.6-1.0); GFR 62.3; POTASSIUM 4.5 mmol/L (3.5-5.1); TOTAL BILIRUBIN 0.3 mg/dL (0.2-1.0); TOTAL PROTEIN 6.3 g/dL (6.4-8.2)
[2016-09-25 07:57] VITALS: BP 121/72
--- NOTE | 2016-09-25 08:25 | PN ---
DATE: 09/24/2016 SUBJECTIVE: The patient is resting, slightly propped up in her recliner, in no apparent distress. She is awake, alert. On questioning her, denied any complaint to me, but she apparently stated that her gum is painful to the nursing staff. She took all her medications, but refused her breakfast. She does not feel hungry according to her. Her gastric emptying study showed that she has a flat curve indicating severe gastroparesis and we did start her on Reglan, but so far has not made any difference. OBJECTIVE: GENERAL: When I examined her, she looked pale, but no jaundice, cyanosis or thyromegaly. No jugular venous distention. No limb edema. VITAL SIGNS: Her heart rate was 66, blood pressure was 138/82, temperature was 97.7, respiratory rate was 18 and oxygen saturation was 97%. The rest of clinical examination is stable and has not really changed. Her intake over the last 24 hours was 900, output was ____. LABORATORY DATA: Showed that her serum sodium was 140, potassium 3.9, chloride 107, bicarbonate 23, anion gap of 10, BUN 5, creatinine 0.7. Estimated GFR was 83 mL per minute. Her glucose was 104, calcium was 8.9. Her white cell count was 6200, hemoglobin 14, hematocrit 42, MCV 84 and platelet count 244,000. ASSESSMENT AND PLAN: Recurrent bouts of nausea, vomiting as well as diarrhea. Her upper GI endoscopy showed nonerosive gastritis without obstruction and her gastric emptying study is consistent with severe gastroparesis. The patient continued to refuse to eat or drink, although she takes her medications. I will discuss with her the options available including placement of a gastrojejunostomy and/or palliative care and hospice. ROSA SCHULTZ MD DR: GRECIA/hay JOB#: [id number] / [id number]
[2016-09-25] MEDS: MAGNESIUM OXIDE 400 MG TABLET PO SCH (10:19)
[2016-09-25] MEDS: POTASSIUM CHLORIDE 10 MEQ TABLET.ER. PO SCH (10:20)
[2016-09-25] MEDS: ESTRADIOL 1 MG TABLET. PO SCH (10:21)
[2016-09-25] MEDS: LISINOPRIL 20 MG TABLET PO SCH (10:22)
[2016-09-25] MEDS: VITAMIN E 200 UNIT CAPSULE. PO SCH (10:23)
[2016-09-25] MEDS: AMLODIPINE BESYLATE 2.5 MG TABLET. PO SCH (10:24)
[2016-09-25 11:33] VITALS: BP 117/71
--- NOTE | 2016-09-25 13:08 | PDOC ---
G I PROGRESS NOTE Reason for Follow-up N/V Subjective Feeling better/still confused Physical Exam Lungs decreased BS CV S1 S2 Abd +BS, soft, nontender Review of Relevant I have reviewed the following items luciana (where applicable) has been applied. Labs Laboratory Tests Test 09/24/16 12:45 09/25/16 05:20 Sodium Level 139mmol/L (136-145) 140mmol/L (136-145) Potassium Level 4.2mmol/L (3.5-5.1) 4.5mmol/L (3.5-5.1) Chloride Level 104mmol/L (98-107) 106mmol/L (98-107) Carbon Dioxide Level 26mmol/L (21-32) 27mmol/L (21-32) Anion Gap 9 (6-14) 7 (6-14) Blood Urea Nitrogen 4mg/dL (7-20) 6mg/dL (7-20) Creatinine 0.9mg/dL (0.6-1.0) 0.9mg/dL (0.6-1.0) Estimated GFR (Cockcroft-Gault) 62.3 62.3 Glucose Level 96mg/dL (70-99) 87mg/dL (70-99) Calcium Level 9.3mg/dL (8.5-10.1) 9.1mg/dL (8.5-10.1) White Blood Count 3.8x10^3/uL (4.0-11.0) Red Blood Count 5.02x10^6/uL (3.50-5.40) Hemoglobin 14.0g/dL (12.0-15.5) Hematocrit 42.4% (36.0-47.0) Mean Corpuscular Volume 84fL (79-100) Mean Corpuscular Hemoglobin 28pg (25-35) Mean Corpuscular Hemoglobin Concent 33g/dL (31-37) Red Cell Distribution Width 14.4% (11.5-14.5) Platelet Count 201x10^3/uL (140-400) BUN/Creatinine Ratio 7 (6-20) Total Bilirubin 0.3mg/dL (0.2-1.0) Aspartate Amino Transf (AST/SGOT) 58U/L (15-37) Alanine Aminotransferase (ALT/SGPT) 47U/L (14-59) Alkaline Phosphatase 89U/L (46-116) Total Protein 6.3g/dL (6.4-8.2) Albumin 2.8g/dL (3.4-5.0) Albumin/Globulin Ratio 0.8 (1.0-1.7) Laboratory Tests Test 09/25/16 05:20 White Blood Count 3.8x10^3/uL (4.0-11.0) Red Blood Count 5.02x10^6/uL (3.50-5.40) Hemoglobin 14.0g/dL (12.0-15.5) Hematocrit 42.4% (36.0-47.0) Mean Corpuscular Volume 84fL (79-100) Mean Corpuscular Hemoglobin 28pg (25-35) Mean Corpuscular Hemoglobin Concent 33g/dL (31-37) Red Cell Distribution Width 14.4% (11.5-14.5) Platelet Count 201x10^3/uL (140-400) Sodium Level 140mmol/L (136-145) Potassium Level 4.5mmol/L (3.5-5.1) Chloride Level 106mmol/L (98-107) Carbon Dioxide Level 27mmol/L (21-32) Anion Gap 7 (6-14) Blood Urea Nitrogen 6mg/dL (7-20) Creatinine 0.9mg/dL (0.6-1.0) Estimated GFR (Cockcroft-Gault) 62.3 BUN/Creatinine Ratio 7 (6-20) Glucose Level 87mg/dL (70-99) Calcium Level 9.1mg/dL (8.5-10.1) Total Bilirubin 0.3mg/dL (0.2-1.0) Aspartate Amino Transf (AST/SGOT) 58U/L (15-37) Alanine Aminotransferase (ALT/SGPT) 47U/L (14-59) Alkaline Phosphatase 89U/L (46-116) Total Protein 6.3g/dL (6.4-8.2) Albumin 2.8g/dL (3.4-5.0) Albumin/Globulin Ratio 0.8 (1.0-1.7) Medications Current Medications Sodium Chloride (Iv Sodium Chloride 0.9% 1000ml Bag) 1,000 ml @ 100 mls/hr Q10H IV Last administered on 09/19/16 23:23; Start 09/18/16 at 19:00; Stop at 14:21; Status DC Acetaminophen (Tylenol) 650 mg Q6HRS PO Last administered on 09/20/16 05:52; Start 09/19/16 at 00:00; Stop 09/21/16 at 05:49; Status DC Amlodipine Besylate (Norvasc) 2.5 mg DAILY PO Last administered on 09/20/16 13 :45; Start 09/19/16 at 09:00; Stop 09/21/16 at 21:00; Status DC Calcium Carbonate/ Glycine (Oscal) 500 mg PRN Q3HRS PRN PO HEARTBURN / GAS; Start 09/18/16 at 18:15 Donepezil HCl (Aricept) 10 mg HS PO ; Start 09/18/16 at 21:00; Stop 09/18/16 at 21:54; Status DC Levothyroxine Sodium (Synthroid) 50 mcg DAILY07 PO Last administered on 06:10; Start 09/19/16 at 07:00 Lisinopril (Prinivil) 20 mg DAILY PO Last administered on 09/25/16 10:22; Start 09/19/16 at 09:00 Magnesium Oxide (Magnesium Oxide) 400 mg DAILY PO Last administered on 10:19; Start 09/19/16 at 09:00 Morphine Sulfate (Morphine Ir) 7.5 mg PRN Q12HR PRN PO PAIN; Start 09/18/16 at 18:15 Prochlorperazine Edisylate (Compazine) 10 mg PRN Q4HRS PRN IV NAUSEA/VOMITING; Start 09/18/16 at 18:15; Status Cancel Non-Formulary Medication 1 gm DAILY IV ; Start 09/19/16 at 09:00; Status UNV Estradiol (Estrace) 0.5 mg DAILY PO Last administered on 09/25/16 10:21; Start 09/19/16 at 09:00 Ondansetron HCl (Zofran Odt) 4 mg PRN Q8HRS PRN PO NAUSEA/VOMITING; Start 09/18 at 18:30; Stop 09/24/16 at 22:29; Status DC Ondansetron HCl (Zofran) 4 mg PRN Q6HRS PRN IV NAUSEA; Start 09/18/16 at 18:30 ; Stop 09/21/16 at 05:49; Status DC Potassium Chloride (Klor-Con) 10 meq [id number] PO Last administered on 10:20; Start 09/19/16 at 08:00 Vitamin E 400 unit DAILY PO Last administered on 09/25/16 10:23; Start at 09:00 Hydralazine HCl 10 mg 10 mg PRN Q4HRS PRN IVP ELEVATED BP, SEE COMMENTS Last administered on 09/20/16 15:25; Start 09/18/16 at 18:15; Stop 09/20/16 at 16:27 ; Status DC Ceftriaxone Sodium 1 gm/ Sodium Chloride 50 ml @ 100 mls/hr Q24H IV Last administered on 09/24/16 14:31; Start 09/19/16 at 14:00 Ceftriaxone Sodium/Sodium Chloride (Rocephin/Iv Sodium Chloride 0.9% 50ml) 50 ml @ 100 mls/hr Q24H IV ; Start 09/18/16 at 18:30; Status UNV Prochlorperazine Edisylate (Compazine) 10 mg Q4HRS PRN IV NAUSEA/VOMITING (2ND CHOICE); Start 09/18/16 at 18:30; Stop 09/21/16 at 13:39; Status DC Donepezil HCl (Aricept) 10 mg HS PO ; Start 09/18/16 at 22:00; Stop 09/18/16 at 22:08; Status DC Donepezil HCl (Aricept) 10 mg HS PO Last administered on 09/24/16 20:41; Start 09/18/16 at 22:15 Diphenhydramine HCl (Benadryl) 25 mg PRN Q4HRS PRN IVP ITCHING Last administered on 09/20/16 15:18; Start 09/18/16 at 23:15; Stop 09/23/16 at 13:20 ; Status DC Pantoprazole Sodium (Protonix) 40 mg DAILYAC PO Last administered on 09/20/16 13:36; Start 09/19/16 at 09:30; Stop 09/22/16 at 05:41; Status DC Barium Sulfate (E-Z-Hd) 340 gm 1X ONCE PO ; Start 09/20/16 at 07:45; Stop 09/20 at 07:46; Status DC Barium Sulfate (Liquid E-Z Paque) 355 ml 1X ONCE PO Last administered on 13:10; Start 09/20/16 at 07:45; Stop 09/20/16 at 07:46; Status DC Simethicone/ Sodium Bicarb/ Citric Ac 1 packet 1 packet 1X ONCE PO ; Start at 07:45; Stop 09/20/16 at 07:46; Status DC Dextrose/Sodium Chloride 1,000 ml @ 75 mls/hr [id number] IV Last administered on 09/20/16 10:04; Start 09/20/16 at 10:00; Stop 09/20/16 at 11:20; Status DC Potassium Chloride/Dextrose/ Sod Cl (KCl 40 Meq In D5%-1/2ns Iv Ivette) 1,000 ml @ 75 mls/hr [id number] IV Last administered on 09/24/16 17:29; Start 09/20/16 at 11:30 Hydralazine HCl (Apresoline) 20 mg PRN Q4HRS PRN IVP ELEVATED BP, SEE COMMENTS Last administered on 09/21/16 08:35; Start 09/20/16 at 18:15 Clonidine HCl (Catapres Tts-2) 1 patch WEEKLY TD Last administered on 17:12; Start 09/20/16 at 16:30 Lorazepam (Ativan) 1 mg 1X ONCE IV Last administered on 09/20/16 17:12; Start 09/20/16 at 17:00; Stop 09/20/16 at 17:01; Status DC Lorazepam (Ativan) 0.5 mg PRN Q4HRS PRN IV ANXIETY / AGITATION Last administered on 09/22/16 23:31; Start 09/20/16 at 23:00; Stop 09/24/16 at 22:29 ; Status DC Acetaminophen (Tylenol) 650 mg Q6HRS PO Last administered on 09/25/16 06:10; Start 09/21/16 at 06:00 Ondansetron HCl 4 mg 4 mg PRN Q6HRS PRN IV NAUSEA/VOMITING (1ST CHOICE); Start 09/21/16 at 05:49; Stop 09/23/16 at 13:20; Status DC Potassium Chloride (KCl Premix 10meq) 100 ml @ 100 mls/hr Q1H IV Last administered on 09/21/16 10:44; Start 09/21/16 at 07:00; Stop 09/21/16 at 10:59 ; Status DC Ondansetron HCl (Zofran) 0.4 mg PRN Q6HRS PRN IV NAUSEA/VOMITING; Start at 11:00; Stop 09/22/16 at 10:59; Status DC Fentanyl Citrate (Fentanyl 2ml Vial) 25 mcg PRN Q5MIN PRN IV MILD PAIN; Start 09/21/16 at 11:00; Stop 09/22/16 at 10:59; Status DC Fentanyl Citrate 50 mcg 50 mcg PRN Q5MIN PRN IV MODERATE PAIN; Start 09/21/16 at 11:00; Stop 09/22/16 at 10:59; Status DC Lactated Ringer's (Iv Lactated Ringers) 1,000 ml @ 0 mls/hr Q0M IV ; Start at 10:48; Stop 09/21/16 at 22:47; Status DC Lidocaine HCl 2 ml PRN 1X PRN ID PRIOR TO IV START; Start 09/21/16 at 11:00; Stop 09/22/16 at 10:59; Status DC Prochlorperazine Edisylate (Compazine) 5 mg PACU PRN PRN IV NAUSEA, MRX1; Start 09/21/16 at 11:00; Stop 09/22/16 at 10:59; Status DC Labetalol HCl 20 mg 20 mg PRN Q2HR PRN IVP HYPERTENSION, SEE COMMENTS Last administered on 09/21/16 17:32; Start 09/21/16 at 11:45 Propofol (Diprivan) 0 ml @ As Directed STK-MED ONCE IV ; Start 09/21/16 at 12:03 ; Stop 09/21/16 at 12:04; Status DC Lidocaine HCl (Lidocaine Pf 2% Vial) 5 ml STK-MED ONCE .ROUTE ; Start 09/21/16 at 12:03; Stop 09/21/16 at 12:04; Status DC Prochlorperazine Edisylate (Compazine) 10 mg PRN Q4HRS PRN IV NAUSEA/VOMITING ( 2ND CHOICE); Start 09/21/16 at 13:39 Iohexol (Omnipaque 300 Mg/ml) 75 ml 1X ONCE IV Last administered on 09/22/16 08:11; Start 09/21/16 at 17:15; Stop 09/21/16 at 17:16; Status DC Info (Do NOT chart on this entry -- for MONITORING) 1 each PRN DAILY PRN MC SEE COMMENTS; Start 09/21/16 at 17:15; Stop 09/22/16 at 16:03; Status DC Amlodipine Besylate (Norvasc) 2.5 mg DAILY PO Last administered on 09/25/16 10: 24; Start 09/22/16 at 09:00 Pantoprazole Sodium (Protonix) 40 mg DAILYAC PO Last administered on 09/25/16 06:10; Start 09/22/16 at 05:41 Iohexol (Omnipaque 300 Mg/ml) 75 ml 1X ONCE IV ; Start 09/22/16 at 07:00; Stop 09/22/16 at 07:01; Status DC Info (Do NOT chart on this entry -- for MONITORING) 1 each PRN DAILY PRN MC SEE COMMENTS; Start 09/22/16 at 06:45; Stop 09/24/16 at 06:44; Status DC Metoclopramide HCl (Reglan) 5 mg TIDACHC PO Last administered on 09/23/16 11:43 ; Start 09/22/16 at 21:00; Stop 09/23/16 at 13:28; Status DC Diphenhydramine HCl (Benadryl) 25 mg PRN Q4HRS PRN IVP ITCHING; Start 09/23/16 at 13:30 Ondansetron HCl (Zofran) 4 mg PRN Q6HRS PRN IV NAUSEA/VOMITING (1ST CHOICE) Last administered on 09/24/16 08:38; Start 09/23/16 at 13:30 Metoclopramide HCl (Reglan) 10 mg Q6HRS IV Last administered on 09/24/16 17:03 ; Start 09/23/16 at 18:00 Multi-Ingredient Mouthwash/Gargle (Velvet Glove Oral Susp) 10 ml PRN QID PRN PO MOUTH PAIN Last administered on 09/24/16t 17:29; Start 09/24/16 at 12:30 Lorazepam (Ativan) 0.5 mg PRN Q4HRS PRN IV ANXIETY / AGITATION; Start 09/24/16 at 22:29 Ondansetron HCl (Zofran Odt) 4 mg PRN Q8HRS PRN PO NAUSEA/VOMITING; Start at 22:29 Active Scripts Active Reported Morphine Sulfate 15 Mg Tablet 7.5 Mg PO Q12HR PRN Vitamin E (Vitamin E Mixed) 400 Unit Capsule 400 Unit PO DAILY Potassium Chloride 10 Meq Capsule.er 10 Meq PO DAILY Ondansetron Hcl 4 Mg Tablet 1 Tab PO Q8HRS PRN Magnesium Oxide 400 Mg Tablet 1 Tab PO DAILY Fish Oil 1,200 Mg Fish Oil (Fish Oil/Dha/Epa) 1 Each Capsule 1 Each PO Estradiol 0.5 Mg Tablet 1 Tab PO DAILY Donepezil Hcl 10 Mg Tablet 1 Tab PO HS Prochlorperazine Edisylate 10 Mg/2 Ml Vial 10 Mg IV Q4HRS PRN Ondansetron HCl 4 mg/2 ml Syr (Ondansetron HCl/Pf) 4 Mg/2 Ml Syringe 4 Mg IV Q4HRS PRN Lisinopril 20 Mg Tablet 1 Tab PO DAILY Synthroid (Levothyroxine Sodium) 50 Mcg Tablet 1 Tab PO DAILY Ceftriaxone 1 Gm Piggyback (Ceftriaxone Na/Dextrose,Iso) 1 Gm/50 Ml Froz.piggy 1 Gm IV DAILY Calcium Carbonate 500 Mg Tablet 500 Mg PO Q3HRS PRN Amlodipine Besylate 2.5 Mg Tablet 2.5 Mg PO DAILY Tylenol (Acetaminophen) 325 Mg Tablet 650 Mg PO Q6HRS Vitals/I & O Vital Sign - Last 24 Hours 09/24/16 09/24/16 09/24/16 09/24/16 14:40 19:35 20:40 23:30 Temp 97.7 97.7 98.0 97.7 97.7 98.0 Pulse 69 63 68 Resp 16 20 20 B/P 128/73 119/76 115/77 Pulse Ox 97 98 97 O2 Delivery Room Air Room Air Room Air Room Air 4/09/0809/25/16 09/25/16 09/25/16 03:15 07:57 08:00 10:22 Temp 97.9 98.1 97.9 98.1 Pulse 67 54 54 Resp 12 B/P 122/69 121/72 121/72 Pulse Ox 98 O2 Delivery Room Air Room Air O2 Flow Rate 2.0 09/25/16 09/25/16 10:24 11:33 Temp 97.9 97.9 Pulse 54 72 Resp 15 B/P 121/72 117/71 Pulse Ox 98 O2 Delivery Room Air Intake and Output 09/24/16 09/24/16 09/25/16 15:00 23:00 07:00 Intake Total 300 ml Output Total 1000 ml 800 ml Balance -700 ml -800 ml Problem List N/V- with prolonged GES consistent with gastroparesis, medical therapy with iv prokinetic therapy for now, possible oral reglan as o/p TELMA RODRIGUEZ MD Sep 25, 2016 13:08
[2016-09-25] MEDS: CEFTRIAXONE SODIUM 1 GM in IV NORMAL SALINE 50ML 50 ML IV SCH (14:00)
[2016-09-25 15:45] VITALS: BP 118/66
[2016-09-25 19:00] VITALS: BP 112/62
[2016-09-25] MEDS: DONEPEZIL HCL 10 MG TABLET. PO SCH (21:00)
[2016-09-26] MEDS: POTASSIUM CL 40MEQ D5-0.45NACL 1,000 ML IV SCH ×2 (00:50→14:10)
[2016-09-26 03:00] VITALS: BP 140/99
[2016-09-26] MEDS: ACETAMINOPHEN 325 MG TABLET. PO SCH ×3 (05:33→18:37)
[2016-09-26] MEDS: METOCLOPRAMIDE HCL 10 MG/2 ML VIAL. IV SCH ×3 (05:34→18:37)
--- NOTE | 2016-09-26 06:17 | PN ---
DATE: 09/25/2016 SUBJECTIVE: The patient is sitting comfortably in her chair, eating her lunch. She apparently ate about 25% of her breakfast this morning. She kept it without any episodes of nausea, vomiting, or diarrhea. OBJECTIVE: GENERAL: When I examined her, she looked well and was clearly in no apparent respiratory distress, pale, not jaundiced, cyanosis or thyromegaly. No jugular venous distension. No limb edema. VITAL SIGNS: Her heart rate was 72, blood pressure 117/71, temperature was 97.9, respiratory rate was 15, and oxygen saturation was 98% on room air. The rest of clinical examination is unremarkable, has not really changed. Her intake over the last 24 hours was 300, output was 1800. LABORATORY DATA: As of this morning, her serum sodium was 140, potassium 4.5, chloride 106, bicarbonate 27, anion gap of 7, BUN 6, creatinine 0.9, estimated GFR was 62 mL per minute. Her glucose was 87, calcium was 9.1. Total bilirubin, AST, ALT, alkaline phosphatase were normal. Her total protein was 6.3, albumin was 2.8. White cell count was 3800, hemoglobin 14, hematocrit 42, MCV 84, and platelet count 101,000. ASSESSMENT: 1. Recurrent episodes of nausea and vomiting, resolved. 2. Upper GI endoscopy showed nonerosive gastritis without obstruction. 3. Gastric emptying consistent with severe gastroparesis. The patient has eaten 25% of her breakfast this morning. We will see how much she eats her lunch and dinner tonight, and if she is eating adequate amount, we can discharge her back home with her . ROSA SCHULTZ MD DR: GRECIA/hay JOB#: [id number] / [id number]
[2016-09-26 07:00] VITALS: BP 107/62
[2016-09-26] MEDS: LEVOTHYROXINE 50 MCG TABLET PO SCH (07:30)
[2016-09-26] MEDS: VITAMIN E 200 UNIT CAPSULE. PO SCH (09:05)
[2016-09-26] MEDS: POTASSIUM CHLORIDE 10 MEQ TABLET.ER. PO SCH (09:05)
[2016-09-26] MEDS: PANTOPRAZOLE 40 MG TABLET.DR. PO SCH (09:05)
[2016-09-26] MEDS: MAGNESIUM OXIDE 400 MG TABLET PO SCH (09:05)
[2016-09-26] MEDS: ESTRADIOL 1 MG TABLET. PO SCH (09:05)
[2016-09-26] MEDS: LISINOPRIL 20 MG TABLET PO SCH (09:06)
[2016-09-26] MEDS: AMLODIPINE BESYLATE 2.5 MG TABLET. PO SCH (09:06)
[2016-09-26 11:27] VITALS: BP 100/61
--- NOTE | 2016-09-26 13:59 | PDOC ---
Subjective: Subjective: Eating better today. Objective: Objective: RN reports 75% of breakfast, still eating lunch w/ some help when I stopped by. Vital Signs: Vital Signs Date Time Temp Pulse Resp B/P Pulse Ox O2 Delivery O2 Flow Rate FiO2 09/26/16 11:27 98.5 55 18 100/61 95 Room Air 98.5 09/26/16 08:00 2.0 PE: GEN: NAD, sitting in bed eating lunch ABD: +epigastric tenderness NEURO/PSYCH: confused OTHER: family present A/P: Delayed gastric emptying -T1/2 unable to be calculated on GET -- Improved appetite w/ IV Reglan 10mg QID. Consider changing to suspension if required as outpatient. EUGENE UP Sep 26, 2016 13:59
[2016-09-26] MEDS: CEFTRIAXONE SODIUM 1 GM in IV NORMAL SALINE 50ML 50 ML IV SCH (14:09)
[2016-09-26 14:48] VITALS: BP 92/59
[2016-09-26 19:00] VITALS: BP 89/54
[2016-09-26] MEDS: DONEPEZIL HCL 10 MG TABLET. PO SCH (20:29)
[2016-09-26 23:00] VITALS: BP 110/67
[2016-09-27] MEDS: METOCLOPRAMIDE HCL 10 MG/2 ML VIAL. IV SCH ×3 (00:12→11:41)
[2016-09-27 03:15] VITALS: BP 113/76
[2016-09-27] MEDS: POTASSIUM CL 40MEQ D5-0.45NACL 1,000 ML IV SCH (03:30)
--- NOTE | 2016-09-27 04:05 | PN ---
DATE: 09/26/2016 SUBJECTIVE: The patient is resting slightly propped up in bed, in no apparent distress. She is obviously demented, does not give any useful information; however, nursing staff stated that she has eaten 75% of breakfast this morning on her own. I did speak with her and her son and they wanted her to go to a senior living facility for rehabilitation before she can come home. PHYSICAL EXAMINATION: GENERAL: When I examined her this morning, she looked well and was clearly in no apparent respiratory distress, pale, no jaundice, cyanosis or thyromegaly. No jugular venous distention. No limb edema. VITAL SIGNS: Her heart rate was 55, blood pressure was 100/61, temperature was 98.5, respiratory rate was 18 and oxygen saturation was 95%. The rest of clinical examination is unremarkable, has not really changed. Her intake was 1170 and output was 450. LABORATORY DATA: As of yesterday showed a white cell count 3800, hemoglobin 14, hematocrit 42, MCV 84 and platelet count of 201,000. Her chemistry showed a serum sodium 140, potassium 4.5, chloride 106, bicarbonate was 27, anion gap of 7, BUN 6, creatinine 0.9, estimated GFR was 62 mL per minute. Her glucose was 87, calcium was 9.1. Total bilirubin, AST, ALT, alkaline phosphatase were normal. Her total protein was 6.3, albumin was 2.8. Her stool for C. diff was negative. ASSESSMENT: Recurrent episodes of nausea and vomiting resolved. Upper gastrointestinal endoscopy showed nonerosive gastritis without obstruction. Gastric emptying consistent with severe gastroparesis. The patient has eaten yesterday 25% of her breakfast and today she has eaten 75% of her food on her own. PLAN: My plan is to observe her again for how she does with her lunch and dinner and consult the sample case porter to arrange for her to be at a senior living facility for rehabilitation before she goes home. ROSA SCHULTZ MD DR: GRECIA/hay JOB#: [id number] / [id number]
[2016-09-27] MEDS: LEVOTHYROXINE 50 MCG TABLET PO SCH (05:54)
[2016-09-27] MEDS: ACETAMINOPHEN 325 MG TABLET. PO SCH ×3 (05:55→11:41)
[2016-09-27 07:00] VITALS: BP 120/74
[2016-09-27 07:18] LABS: CALCIUM 9.2 mg/dL (8.5-10.1); CREATININE 0.9 mg/dL (0.6-1.0); GFR 62.3; POTASSIUM 4.4 mmol/L (3.5-5.1)
[2016-09-27] MEDS: VITAMIN E 200 UNIT CAPSULE. PO SCH (08:41)
[2016-09-27] MEDS: MAGNESIUM OXIDE 400 MG TABLET PO SCH (08:41)
[2016-09-27] MEDS: POTASSIUM CHLORIDE 10 MEQ TABLET.ER. PO SCH (08:42)
[2016-09-27] MEDS: PANTOPRAZOLE 40 MG TABLET.DR. PO SCH (08:42)
[2016-09-27] MEDS: AMLODIPINE BESYLATE 2.5 MG TABLET. PO SCH (08:42)
[2016-09-27] MEDS: LISINOPRIL 20 MG TABLET PO SCH (08:42)
[2016-09-27] MEDS: ESTRADIOL 1 MG TABLET. PO SCH (08:43)
[2016-09-27] MEDS: CLONIDINE TTS-2 PATCH TD SCH (08:43)
--- NOTE | 2016-09-27 13:18 | PDOC ---
Objective: Objective: Seen earlier during [employer] downtime. Per RN - ate breakfast, DC plans in progress/awaiting placement. Vital Signs: Vital Signs Date Time Temp Pulse Resp B/P Pulse Ox O2 Delivery O2 Flow Rate FiO2 09/27/16 08:42 58 120/74 09/27/16 08:15 Room Air 09/27/16 07:00 98.2 16 95 98.2 09/26/16 08:00 2.0 Labs: Laboratory Tests Test 09/27/16 06:25 Sodium Level 140mmol/L Potassium Level 4.4mmol/L Chloride Level 105mmol/L Carbon Dioxide Level 27mmol/L Anion Gap 8 Blood Urea Nitrogen 13mg/dL Creatinine 0.9mg/dL Estimated GFR (Cockcroft-Gault) 62.3 Glucose Level 96mg/dL Calcium Level 9.2mg/dL PE: GEN: NAD LUNGS: clear anteriorly HEART: RRR ABD: NABS, S/ND/NT NEURO/PSYCH: confused A/P: Delayed gastric emptying -T1/2 unable to be calculated on GET -on IV Reglan -- Improving, eating. Will change Reglan from IC to PO/suspension in anticipation of DC. EUGENE UP Sep 27, 2016 13:18
[2016-09-27] MEDS: CEFTRIAXONE SODIUM 1 GM in IV NORMAL SALINE 50ML 50 ML IV SCH (13:33)
[2016-09-27] MEDS ORDERED: METO10TA PO (14:16)
[2016-09-27 15:00] VITALS: BP 113/65
[2016-09-27] MEDS ORDERED: METOCLOPRAMIDE HCL 10 MG/10 ML SOLUTION. PO SCH (16:30)
== END 2016-09-27 16:49 | disposition home health service (06) | DRG 391 ==
LOC: 5 NORTH 16:33
PROVIDERS: ADMIT Internal Medicine; ATTEND Internal Medicine
PROC: 0DJ08ZZ Inspection of Upper Intestinal Tract, Via Natural or Artificial Opening Endoscopic (ICD-10-PCS; principal; 2016-09-21 12:00)
DX: K31.84 Gastroparesis (principal); G92 Toxic encephalopathy; K29.70 Gastritis, unspecified, without bleeding; F03.90 Unspecified dementia, unspecified severity, without behavioral disturbance, psychotic disturbance, mood disturbance, and anxiety; E03.9 Hypothyroidism, unspecified; E78.5 Hyperlipidemia, unspecified; Z96.653 Presence of artificial knee joint, bilateral; E86.0 Dehydration; E87.6 Hypokalemia; I10 Essential (primary) hypertension; R32 Unspecified urinary incontinence; M41.9 Scoliosis, unspecified; Z80.0 Family history of malignant neoplasm of digestive organs; Z80.1 Family history of malignant neoplasm of trachea, bronchus and lung; Z90.49 Acquired absence of other specified parts of digestive tract; Z88.6 Allergy status to analgesic agent; Z90.710 Acquired absence of both cervix and uterus
CPT/HCPCS: 36415; 74000; 74177; 74240; 78264; 80048; 80053; 82947; 84132; 84443; 85027; 85651; 86140; 87324; 87641; A9541; J0360; J0696; J1200; J2060; J2405; J2704; J2765; J3480; J3490; J7030; J7042; J8597; Q9967; 97110; 97116; 97530; 97535

== ENCOUNTER 2020-06-21 14:26 | Inpatient (IN) | payer OTHER ==
[~2020-06-21] VITALS: Ht 157.5 cm; Wt 51.8 kg
[~2020-06-21 14:26] MED LIST: ACET325T9 PO; AMLO2.5T5 PO; CALC-495 PO; CALC500T31 PO; CEFT1FRO2 IV; DONE10TA7 PO; ESTR0.5T PO; FISH1CAP PO; HYDR-2867 IV; LEVO50TA PO; LISI20TA18 PO; MAGN400T5 PO; MEMA28CA PO; METO10TA PO; MORP10SO PO; MORP10SY6 PO; MORP15TA PO; MORP15TA80 PO; OMEG1CAP50 PO; ONDA-84 PO; ONDA4DIS4 IV; PANT40TA77 PO; POTA10TA12 PO; PROC10VI20 IV; VITA-8 PO
[2020-06-21] MEDS ORDERED: ACETAMINOPHEN 650 MG SUPP.RECT. PR PRN (14:45)
[2020-06-21] MEDS ORDERED: BISACODYL 10 MG SUPP.RECT. PR PRN (14:45)
[2020-06-21] MEDS ORDERED: MORPHINE SULFATE 10 MG/5 ML ORAL SOLUTION. PO PRN (14:45)
[2020-06-21] MEDS: SCOPOLAMINE 1.5MG PATCH. TD SCH (15:00)
[2020-06-21 19:00] VITALS: BP 141/63
[2020-06-21 23:31] VITALS: BP 133/67
[2020-06-22 03:01] VITALS: BP 128/67
[2020-06-22 08:00] VITALS: BP 121/71
--- NOTE | 2020-06-22 08:28 | HP ---
ADMIT DATE: 06/22/2020 HISTORY OF PRESENT ILLNESS: The patient is a 70-year-old female patient, who was admitted with probable aspiration pneumonia and acute hypoxic respiratory failure. She was intubated, treated with IV antibiotics and was successfully extubated. However, she continued to be very encephalopathic, likely combination of hypoxic encephalopathy as well as advanced dementia. Her family opted for hospice and was admitted for an inpatient hospice care. The patient continued to be very confused and even when she talks is nonsensical. PHYSICAL EXAMINATION: GENERAL: When I saw her this morning, she was pale, but not jaundiced, cyanosed, or thyromegaly. No jugular venous distension. No lower limb edema. VITAL SIGNS: Her heart rate was 49, blood pressure was 128/67, temperature 97.8, respiratory rate was 16, and oxygen saturation was 97% on room air. HEAD, EYES, EARS, NOSE AND THROAT: Showed normocephalic, atraumatic. NECK: Supple. HEART: Normal first and second heart sounds. No gallop or murmur. CHEST: Clear to auscultation. No crepitation or rhonchi. ABDOMEN: Distended, soft, nontender. NEUROLOGIC: She is very demented, encephalopathic, but without any obvious lateralizing sign. ASSESSMENT: 1. Aspiration pneumonia. 2. Acute hypoxic respiratory failure, requiring intubation; however, she was successfully extubated. 3. Metabolic and toxic encephalopathy. 4. Advanced dementia. PLAN: To continue with comfort care. She is now on morphine as well as Ativan. ROSA SCHULTZ MD DR: GRECIA/hay JOB#: [id number] / [id number]
[2020-06-22 11:00] VITALS: BP 120/65
--- NOTE | 2020-06-22 15:45 | NUR ---
SW following for discharge planning. Spoke with RN and reviewed chart. pt admitted GIP with [facility] hospice. SW available for support as needed.
[2020-06-22 19:00] VITALS: BP 125/72
--- NOTE | 2020-06-23 02:24 | NUR ---
RECEIVED PT FROM DAY SHIFT PT EYE OPEN RESPONDING TO SIMPLE QUESTION, PT STATES SHE IS COLD , PT RESP EASY COLOR PALE . PT ON HOSPICE CARE. NO NEED FOR COMFORT MEDICATION. PT KEEP PT COMFORTABLE POSSIBLE WITH FREQ ROUNDING.
[2020-06-23 07:00] VITALS: BP 135/69
--- NOTE | 2020-06-23 10:50 | PN ---
DATE: 06/23/2020 SUBJECTIVE: The patient is resting, slightly propped up in bed, sleeping comfortably. She is encephalopathic. She did open her eyes, but drifted back to sleep. She is mostly nonverbal. Nursing staff did not voice any concern and I examined her, she looked pale. No jaundice, cyanosis or thyromegaly. No jugular venous distention. No limb edema. OBJECTIVE: VITAL SIGNS: Her heart rate was 50, blood pressure was 135/69, temperature was 98.2, respiratory rate was 18 and oxygen saturation was 95%. The rest of clinical exam is stable. ASSESSMENT: 1. Aspiration pneumonia. 2. Acute hypoxic respiratory failure requiring intubation and mechanical ventilation, however, she was successfully extubated. 3. Metabolic and toxic encephalopathy. 4. Advanced dementia. PLAN: Continue with comfort care. ROSA SCHULTZ MD DR: GRECIA/hay JOB#: [id number] / [id number]
--- NOTE | 2020-06-23 13:50 | NUR ---
SW following. Spoke with RN and reviewed chart. pt admitted GIP with [facility] hospice. SW available for support as needed.
[2020-06-23 16:14] LABS: CREATININE 0.7 mg/dL (0.6-1.0); GFR 82.3
[2020-06-23 19:00] VITALS: BP 123/61
[2020-06-24 07:00] VITALS: BP 159/79
[2020-06-24] MEDS: SCOPOLAMINE 1.5MG PATCH. TD SCH (11:10)
[2020-06-24] MEDS ORDERED: MORPHINE SULFATE 20 MG/ML CONC SOLUTION. SL PRN (11:30)
--- NOTE | 2020-06-24 13:28 | PN ---
DATE: 06/24/2020 SUBJECTIVE: The patient continued to be resting flat, comfortably in bed, in no apparent distress. She is encephalopathic, mostly nonverbal. Nursing staff did not voice any concern that she has an uneventful night. PHYSICAL EXAMINATION: GENERAL: When I examined her, she was pale, no jaundice, cyanosis or thyromegaly. No jugular venous distention. No lower limb edema. VITAL SIGNS: Her heart rate was 50, blood pressure was 159/79, temperature was 98, respiratory rate 16, and oxygen saturation was 97%. The rest of clinical exam is stable. ASSESSMENT: 1. Aspiration pneumonia. 2. Acute hypoxic respiratory failure requiring intubation and mechanical ventilation; however, she was successfully extubated. 3. Metabolic and toxic encephalopathy. 4. Advanced dementia. PLAN: To continue comfort care. Increase her morphine to 2 mg every hour as needed. ROSA SCHULTZ MD DR: GRECIA/hay JOB#: [id number] / [id number]
--- NOTE | 2020-06-24 13:42 | NUR ---
SW following. Spoke with RN and reviewed chart. Pt admitted GIP with [facility] hospice. Spoke with [facility] forensic social worker Galilea who asked for a referral to be sent to [facility] for LTC placement for this patient. Phoned and faxed referral to [facility] with [facility]. Discharge plan is to LTC with [facility] hospice. Spouse agreeable. Patient choice of vendor form completed. BRENDA requested another COVID swab per request from April. Pt added to possible holiday/weekend discharge list. SW following.
--- NOTE | 2020-06-24 17:14 | NUR ---
Removed rectal tube at 1045 am, no complications noted.
[2020-06-24 19:00] VITALS: BP 108/68
[2020-06-24 23:00] VITALS: BP 123/62
[2020-06-25 07:00] VITALS: BP 136/59
--- NOTE | 2020-06-25 10:45 | SNU/HH DC ---
DISCHARGE ORDERS DISCHARGE INFORMATION: DISCHARGE DATE: Jun 25, 2020 FINAL DIAGNOSIS anoxic encephalopathy acute hypoxic respiratory failure aspiration pneumonia advanced dementia CONDITION ON DISCHARGE: Guarded CODE STATUS: Code Status: DNR/DNI HOSPICE: HOSPICE: Yes HOSPICE EVAL & TREAT: Yes POST DISCHARGE ORDERS: ACTIVITY ORDERS: Activity as tolerated DISCHARGE MEDICATIONS: Home Meds Discontinued Reported Medications [place]-3 Fatty Acids/Fish Oil (FISH OIL 1,000 MG SOFTGEL) 1 Each Capsule, 1 CAP PO DAILY for supplement for 30 Days, #30 CAP 0 Refills 06/12/20 Calcium Carbonate/Vitamin D3 (Calcium 600 + Vit D 800 Tab) 1 Each Tablet, 1 TAB PO DAILY for supplement for 30 Days, #30 TAB 0 Refills 06/12/20 Memantine Hcl (NAMENDA XR) 28 Mg Cap.spr.24, 28 MG PO DAILY for dementia, TAB.SR 06/12/20 Pantoprazole Sodium (PANTOPRAZOLE SODIUM ) 40 Mg Tablet.dr, 40 MG PO DAILYAC for GERD, TAB 06/12/20 Vitamin E Mixed (VITAMIN E) 400 Unit Capsule, 400 UNIT PO DAILY 09/18/16 Potassium Chloride (POTASSIUM CHLORIDE ) 10 Meq Capsule.er, 10 MEQ PO DAILY, TAB.SR 09/18/16 Magnesium Oxide (MAGNESIUM OXIDE) 400 Mg Tablet, 1 TAB PO DAILY, #30 TAB 5 Refills 09/18/16 Donepezil Hcl (DONEPEZIL HCL) 10 Mg Tablet, 1 TAB PO HS, #90 TAB 1 Refill 09/18/16 Lisinopril (LISINOPRIL) 20 Mg Tablet, 0.5 TAB PO DAILY for HTN, #30 TAB 5 Refills 09/18/16 Levothyroxine Sodium (SYNTHROID) 50 Mcg Tablet, 1 TAB PO DAILY, #30 TAB 5 Refills 09/18/16 Amlodipine Besylate (AMLODIPINE BESYLATE) 2.5 Mg Tablet, 2.5 MG PO DAILY, TAB 09/18/16 Acetaminophen (TYLENOL) 325 Mg Tablet, 650 MG PO Q8HRS for chronic pain 09/18/16 Discontinued Scripts Metoclopramide Hcl (METOCLOPRAMIDE HCL) 10 Mg Tablet, 10 MG PO QID for 30 Days, TAB 2 Refills Prov:ROSA SCHULTZ MD 09/27/16 ROSA SCHULTZ MD Jun 25, 2020 10:45
--- NOTE | 2020-06-25 11:06 | DS ---
DATE OF DISCHARGE: HOSPITAL COURSE: The patient is a 70-year-old female patient with advanced dementia who had aspiration pneumonia, acute anoxic encephalopathy and high acute hypoxic respiratory failure requiring intubation and mechanical ventilation from which she was successfully extubated. She continued to be extremely encephalopathic and was discharged to inpatient hospice; however, as she continued to be somewhat stable, a decision was made to transfer her to [facility] in [place] for hospice care in the half-way. PHYSICAL EXAMINATION: GENERAL: When I saw her this morning, she was resting slightly propped up in bed, in no apparent distress, pale, somewhat cachectic, but no jaundice, cyanosis, or thyromegaly. No jugular venous distention. No limb edema. VITAL SIGNS: Her heart rate was 52, blood pressure was 136/59, temperature 97.4, respiratory rate was 16, and oxygen saturation was 98%. HEAD, EYES, EARS, NOSE, AND THROAT: Showed normocephalic, atraumatic. NECK: Supple. HEART: Normal first and second heart sounds. No gallop or murmur. CHEST: Clear to auscultation. No crepitation or rhonchi. ABDOMEN: Scaphoid, soft, nontender. NEUROLOGIC: She is encephalopathic. She does open her eyes, does drift back to sleep. She is mostly nonverbal. DISCHARGE MEDICATIONS: She will be discharged to [facility] in [place] to continue on Roxanol 20 mg/mL to take 0.25-1 mL that is 5-20 mg p.o. sublingually every 2 hours as needed and Ativan 2 mg/mL to take 0.25-1 mL that is 0.5-2 mg p.o. sublingually every 2 hours together with scopolamine patch, bisacodyl 10 mg suppositories for constipation and Tylenol 650 mg every 4 hours as needed. FINAL DISCHARGE DIAGNOSES: 1. Aspiration pneumonia. 2. Acute hypoxic respiratory failure requiring intubation and mechanical ventilation; however, she was successfully extubated. 3. Metabolic and toxic encephalopathy. 4. Advanced dementia. ROSA SCHULTZ MD DR: GRECIA/hay JOB#: [id number] / [id number]
[2020-06-25 19:00] VITALS: BP 114/82
[2020-06-26 07:00] VITALS: BP 139/61
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
[2020-06-26 19:00] VITALS: BP 122/75
[2020-06-27 07:30] VITALS: BP 121/80
[2020-06-27] MEDS: SCOPOLAMINE 1.5MG PATCH. TD SCH (08:17)
--- NOTE | 2020-06-27 11:27 | PN ---
DATE: 06/27/2020 SUBJECTIVE: The patient continues being encephalopathic, on comfort care form of morphine and Ativan and nursing staff did not voice any concern. PHYSICAL EXAMINATION: GENERAL: When I examined her, she looked pale, extremely cachectic, but no jaundice, cyanosis or thyromegaly. No jugular venous distention or limb edema. VITAL SIGNS: Her heart rate was 61, blood pressure was 121/80, temperature was 97.3, respiratory rate was 18 and oxygen saturation was 95% on room air. HEAD, EYES, EARS, NOSE, AND THROAT: Showed normocephalic, atraumatic. NECK: Supple. HEART: Normal first and second heart sounds. No gallop or murmur. CHEST: Clear to auscultation. No crepitation or rhonchi. ABDOMEN: Scaphoid, soft, nontender. NEUROLOGIC: She is encephalopathic with advanced dementia. No lab works were ordered. The patient is on inpatient hospice care. ASSESSMENT: 1. Aspiration pneumonia. 2. Acute hypoxic respiratory failure requiring intubation and mechanical ventilation; however, she was successfully extubated. 3. Metabolic and toxic encephalopathy. 4. Severe advanced dementia. PLAN: To continue with comfort care. She will be discharged tomorrow to [facility] in [place] to continue with hospice and end of life care. ROSA SCHULTZ MD DR: GRECIA/hay JOB#: [id number] / [id number]
[2020-06-27 19:00] VITALS: BP 134/76
[2020-06-28 09:00] VITALS: BP 135/75
--- NOTE | 2020-06-28 17:56 | NUR ---
SW following for discharge planning. Spoke with RN and reviewed chart. Discharge orders and script for pt to admit to [facility] on a respite from 06/28 to 07/03 with [facility] phoned and faxed to both [facility] and [facility]. Pt to transition to LTC after respite per [facility]. [facility]cher transport arranged for 11:30am. No further SW needs at this time.
== END 2020-06-28 12:00 | disposition hospice, inpatient (51) | DRG 177 ==
LOC: 5 NORTH 14:26
PROVIDERS: ADMIT Internal Medicine; ATTEND Internal Medicine
DX: J69.0 Pneumonitis due to inhalation of food and vomit (principal); G92 Toxic encephalopathy; J96.01 Acute respiratory failure with hypoxia; G93.1 Anoxic brain damage, not elsewhere classified; F03.90 Unspecified dementia, unspecified severity, without behavioral disturbance, psychotic disturbance, mood disturbance, and anxiety; Z51.5 Encounter for palliative care; Z88.8 Allergy status to other drugs, medicaments and biological substances; Z79.899 Other long term (current) drug therapy; Z20.822 Contact with and (suspected) exposure to COVID-19
CPT/HCPCS: 36415; 82565; U0003; G0378